=== PATIENT | male | born 1975 | race Caucasian/White ===

== ENCOUNTER 2023-05-14 19:05 | Inpatient (IN) | payer OTHER ==
[2023-05-14 20:16] LABS: ALBUMIN/GLOBULIN RATIO 1.9 (1.0-2.2); BILIRUBIN,TOTAL 1.4 mg/dL (0.2-1.0); CALCIUM 10.5 mg/dL (8.5-10.3); POTASSIUM 4.3 mmol/L (3.5-4.5); TOTAL PROTEIN 7.7 g/dL (6.4-8.9)
[2023-05-14 20:19] LABS: BASOPHILS # (AUTO) 0.1 10^3/uL (0.0-0.1); BASOPHILS % (AUTO) 0.4 %; EOSINOPHILS % (AUTO) 0.1 %; HCT - HEMATOCRIT 51.1 % (42.0-52.0); HGB - HEMOGLOBIN 18.8 g/dL (14.0-18.0); LYMPHOCYTES # (AUTO) 1.4 10^3/uL (1.5-3.5); LYMPHOCYTES % (AUTO) 11.9 %; MEAN CORPUSCULAR HGB CONC 36.8 g/dL (32.0-36.0); MEAN CORPUSCULAR VOLUME 89.8 fL (80.0-94.0); MEAN PLATELET VOLUME 9.8 fL (7.4-11.4); MONOCYTES # (AUTO) 0.6 10^3/uL (0.0-1.0); MONOCYTES % (AUTO) 5.3 %; NEUTROPHILS # (AUTO) 9.5 10^3/uL (1.5-6.6); NEUTROPHILS % (AUTO) 81.9 %; PLT - PLATELET COUNT 189 10^3/uL (130-450); RED BLOOD COUNT 5.69 10^6/uL (4.70-6.10); RED CELL DISTRIBUTION WIDTH 12.2 % (12.0-15.0); WHITE BLOOD COUNT 11.6 x10^3/uL (4.8-10.8)
[2023-05-14] MEDS ORDERED: SODIUM CHLORIDE 0.9% 1,000 ML IV STA (20:26)
[2023-05-14] MEDS ORDERED: ONDANSETRON 4 MG/2 ML VIAL IVP STA (20:27)
[2023-05-14] MEDS ORDERED: KETOROLAC 30 MG/ML VIAL IVP STA (20:27)
--- NOTE | 2023-05-14 20:29 | ED Physician Documentation ---
History of Present Illness - Stated complaint Stated Complaint: ABD PX/GI/VOMITING - Chief complaint Chief Complaint: Abd Pain - History obtained from History obtained from: Patient - Additonal information Additional information: 48yM with pmh reflux, psh BL hernia repair and appendectomy as an , p/w LUQ pain since yesterday radiating diffusely with associated dry heaves and nausea. also has not had BM since wednesday and only passed small amount of brown stool at that time. states he is unable to pass flatus and feels bloated. denies fever, urinary sx, diarrhea PD PAST MEDICAL HISTORY - Allergies Allergies/Adverse Reactions: Allergies Allergy/AdvReac Type Severity Reaction Status Date / Time No Known Drug Allergies Allergy Verified 05/14/23 19:30 PD ED PE NORMAL - Vitals Vital signs reviewed: Yes - General General: Alert and oriented X 3, No acute distress, Well developed/nourished - HEENT HEENT: Atraumatic, PERRL, EOMI - Neck Neck: Supple, no meningeal sign - Cardiac Cardiac: RRR - Respiratory Respiratory: No respiratory distress, Clear bilaterally - Abdomen Abdomen: Other (diffusely ttp) - Back Back: No CVA TTP - Derm Derm: Normal color, Warm and dry Results - Vitals Vitals: Vital Signs - 24 hr 05/14/23 19:27 Temperature 36.8 C Heart Rate 85 Respiratory 18 Rate Blood Pressure 174/112 H O2 Saturation 95 Oxygen O2 Source Room air - Labs Labs: Laboratory Tests 05/14/23 05/14/23 05/14/23 19:50 19:50 19:50 WBC 11.6 H RBC 5.69 Hgb 18.8 H Hct 51.1 MCV 89.8 MCH 33.0 H MCHC 36.8 H RDW 12.2 Plt Count 189 MPV 9.8 Neut # (Auto) 9.5 H Lymph # (Auto) 1.4 L Kern # (Auto) 0.6 Eos # (Auto) 0.0 Baso # (Auto) 0.1 Absolute Nucleated RBC 0.00 Nucleated RBC % 0.0 Sodium 134 L Potassium 4.3 Chloride 97 L Carbon Dioxide 28 Anion Gap 9.0 BUN 16 Creatinine 1.0 Estimated GFR (MDRD) 79 L Glucose 243 H Calcium 10.5 H Total Bilirubin 1.4 H AST 31 ALT 68 H Alkaline Phosphatase 69 Total Protein 7.7 Albumin 5.0 Globulin 2.7 Albumin/Globulin Ratio 1.9 Lipase 39 Urine Color Urine Clarity Urine pH Ur Specific [place] Urine Protein Urine Glucose (UA) Urine Ketones Urine Occult Blood Urine Nitrite Urine Bilirubin Urine Urobilinogen Ur Leukocyte Esterase Urine RBC Urine WBC Ur Squamous Epith Cells Urine Bacteria Urine Mucus Urine Culture Comments Serum Ketones NEGATIVE 05/14/23 19:50 WBC RBC Hgb Hct MCV MCH MCHC RDW Plt Count MPV Neut # (Auto) Lymph # (Auto) Kern # (Auto) Eos # (Auto) Baso # (Auto) Absolute Nucleated RBC Nucleated RBC % Sodium Potassium Chloride Carbon Dioxide Anion Gap BUN Creatinine Estimated GFR (MDRD) Glucose Calcium Total Bilirubin AST ALT Alkaline Phosphatase Total Protein Albumin Globulin Albumin/Globulin Ratio Lipase Urine Color DARK YELLOW Urine Clarity CLEAR Urine pH 6.0 Ur Specific [place] 1.025 Urine Protein 30 H Urine Glucose (UA) NEGATIVE Urine Ketones 40 H Urine Occult Blood NEGATIVE Urine Nitrite NEGATIVE Urine Bilirubin NEGATIVE Urine Urobilinogen 1 (NORMAL) Ur Leukocyte Esterase NEGATIVE Urine RBC None Seen Urine WBC 0-3 Ur Squamous Epith Cells NONE SEEN Urine Bacteria None Seen Urine Mucus Few Strands Urine Culture Comments NOT INDICATED Serum Ketones PD Medical Decision Making - ED course ED course: 48yM presents from clinic with concern for possible SBO given his two days of abdominal pain and inability to pass flatus. cbc, abdominal panel, u/a, serum ketones ordered in addition to CTAP. IVF , zofran, toradol provided with improvement in pain. SBO on CT. d/w Dr. Blas. plan to admit to medicine. NG and maintenance fluids ordered. Departure - Departure Disposition: 66 [facility] DC/Xfer Clinical Impression: SBO (small bowel obstruction) Condition: Stable Forms: PCP List
[2023-05-14] MEDS ORDERED: FAMOTIDINE 20 MG/2 ML VIAL IVP STA (20:30)
[2023-05-14 20:33] LABS: BILIRUBIN,URINE NEGATIVE (NEGATIVE); GLUCOSE, URINE (UA) NEGATIVE (NEGATIVE); KETONES,URINE (UA) 40 mg/dL (NEGATIVE); LEUKOCYTE ESTERASE, URINE NEGATIVE (NEGATIVE); NITRITE,URINE NEGATIVE (NEGATIVE); OCCULT BLOOD,URINE NEGATIVE (NEGATIVE); PROTEIN,URINE 30 mg/dL (NEGATIVE); UROBILINOGEN,URINE 1 (NORMAL) E.U./dL (NORMAL)
[2023-05-14 20:39] LABS: CLARITY,URINE CLEAR (CLEAR)
[2023-05-14 20:48] LABS: BACTERIA,URINE None Seen /HPF (None Seen); MUCUS,URINE Few Strands; RBC,URINE None Seen /HPF (0-5); SQUAMOUS EPITHELIAL CELL,UR NONE SEEN (<= Few); WBC,URINE 0-3 /HPF (0-3)
[2023-05-14] MEDS ORDERED: iohexoL-300 100 ML VIAL IVP ONE (21:29)
--- NOTE | 2023-05-14 22:20 | CT Report ---
PROCEDURE: ABDOMEN/PELVIS W INDICATIONS: LUQ pain, constipation, unable to pass flatus CONTRAST: 100 ML OMNI 300 TECHNIQUE: After the administration of intravenous contrast, 5 mm thick sections acquired from the diaphragms to the symphysis. 5 mm thick coronal and sagittal reformats were acquired. For radiation dose reducti on, the following was used: automated exposure control, adjustment of mA and/or kV according to christian ent size. COMPARISON: None FINDINGS: Image quality: Excellent. Lung bases and heart: Unremarkable. Liver: Moderate to marked diffuse hepatic hypodensity and relative hyperdensity in the gallbladder fo ssa. Gallbladder and biliary tree: Normal gallbladder. Nondilated biliary tree. Spleen: No splenomegaly. Pancreas: No pancreatic ductal dilation. Adrenals: No adrenal nodule. Kidneys and ureters: No hydronephrosis. No renal cystic lesion which requires follow up. No solid mas s. Bowel and peritoneum: The stomach contains fluid and an air-fluid level. Mid small bowel loops are di lated, fluid-filled, and demonstrate occasional fluid levels. There is mild interloop fat stranding. No signs of stasis in the right lower quadrant distended small bowel loop. There is a transition poin t of a moderate length segment of decompressed bowel with mucosal hyperemia seen. This segment of bow el has tram track appearance. There is mild surrounding fluid. Distal small bowel is decompressed. Te rminal ileum appears normal. The appendix was not identified. Colon is diffusely decompressed. No dep endently layering free fluid. No free air in the abdomen. Lymph nodes: No central or retroperitoneal adenopathy. Vessels: No infrarenal aortic aneurysm. PELVIS Reproductive organs: Unremarkable. Bladder: No abnormal wall thickening, accounting for underdistension. Pelvic lymph nodes: No pelvic adenopathy by size criteria. Bones: No aggressive osseous abnormality. Other: No significant ventral or inguinal hernia. IMPRESSION: 1. Acute small bowel obstruction with a transition point in the anterior right lower quadrant corresp onding to an inflamed, stenosed loop of small bowel. Consider inflammatory bowel disease as an etiolo gy of obstruction. Adhesions may also be present given probable prior appendectomy. 2. Moderate to marked hepatic steatosis. 3. Findings discussed with the ordering provider at 2217 hours. Reviewed by: Estefany Adrian MD on 05/14/2023 10:19 PM PDT Approved by: Estefany Adrian MD on 05/14/2023 10:19 PM PDT Station ID: [id number]
[2023-05-14] MEDS ORDERED: SODIUM CHLORIDE 0.9% 1,000 ML IV SCH (23:00)
[2023-05-14] MEDS ORDERED: ACETAMINOPHEN 325 MG TABLET PO PRN (23:53)
[2023-05-14] MEDS ORDERED: SODIUM CHLORIDE FLUSH 0.9% 10 ML SYRINGE IVP PRN (23:53)
[2023-05-15] MEDS ORDERED: METOCLOPRAMIDE 10 MG/2 ML VIAL IVP PRN
--- NOTE | 2023-05-15 00:05 | HISTORY & PHYSICAL EXAMINATION ---
Chief Complaint - Chief Complaint Chief Complaint: Abdominal pain constipation, nausea History of Present Illness - Admitted From Admitted From:: Home - History Obtained From Records Reviewed: Yes History obtained from: Patient and his Exam Limitations: Telemedicine - History of Present Illness HPI Comment/Other: 48yM with pmh reflux, psh BL hernia repair and appendectomy as an , p/w LUQ pain since yesterday radiating diffusely with associated dry heaves and nausea. also has not had BM since wednesday and only passed small amount of brown stool at that time. states he is unable to pass flatus and feels bloated. 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 He used to live in [facility] in past, originially from [place], [place] Patient had NGT placed in ER, surgery consulted after CT scan, had 300 ml output feels much better after NGT and dose of Toradol in ER, no hx of weight loss or weight gain, no change in diet or appetite. Meds/Allgy - Home Medications Home Medications: Ambulatory Orders Medication Instructions Recorded Confirmed No Known Home Medications 05/15/23 05/15/23 - Allergies Allergies/Adverse Reactions: Allergies Allergy/AdvReac Type Severity Reaction Status Date / Time No Known Drug Allergies Allergy Verified 05/14/23 19:30 Review of Systems - Gastrointestinal Gastrointestinal: reports: Abdominal pain, Abdominal distention, Constipation, Change in bowel habits Prior Level of Functionality: Independent with ADL Exam - Vital Signs Vital Signs: Vital Signs x48h Temp Pulse Resp BP Pulse Ox 05/14/23 23:15 100 16 140/100 H 96 05/14/23 19:27 36.8 C 85 18 174/112 H 95 - Physical Exam General Appearance: positive: No acute distress, Alert Eyes Bilateral: positive: Normal inspection, PERRL ENT: positive: ENT inspection nml Neck: positive: Nml inspection Respiratory: positive: Chest non-tender, No respiratory distress Cardiovascular: positive: Regular rate & rhythm Abdomen: positive: Other (Distended and feels bloated) Skin: positive: Color nml, No rash Extremities: positive: Full ROM, Nml appearance Neurologic/Psychiatric: positive: Oriented x3, CN's nml (2-12) Sepsis Event Note (H) - Evaluation Current Stage of Sepsis: Ruled out Conclusion/Plan - Problem List (1) SBO (small bowel obstruction) Conclusion/Plan: SBO KEEP NPO IVF Amulation Chew Gum Surgery has been consulted KEep electrolytes optimized check TSh Sean stockings NG to intermittent suction which can be clamped in am and patient to be encoruaged to ambulate Q1-2 hrs while awake If clinically appropriate would recommend UGI series once abdomen is soft Check Abxray 2 views in am based on his clinical progress all of the aboved discussed at length with elisa and his at bedside Will need GI consult and referral Patient has been informed that this ia telemedicine visit and I am based out of [place] and he agrees to the visit We had a nice talk over the teleconference. - Lab Results Fish Bones: 05/14/23 19:50 05/14/23 19:50 - Diagnostic Imaging Results Diagnostic Imaging Results: positive: Final report reviewed - EKG Results EKG Interpreted Independently: No
--- NOTE | 2023-05-15 00:58 | XRAY Report ---
PROCEDURE: Chest for Line Placement INDICATIONS: NG tube verification TECHNIQUE: One view of the chest was acquired. COMPARISON: None. FINDINGS: Surgical changes and devices: Nasogastric tube is present. The distal end and sidehole are below the diaphragm. Lungs and pleura: There is mild left hemidiaphragm elevation and slight left base opacity. No new co nsolidation, effusion, or pneumothorax. Mediastinum: Heart size at the upper limits of normal. Normal mediastinal contour without central ve nous congestion. Bones and chest wall: No suspicious bony lesions. Overlying soft tissues appear unremarkable. IMPRESSION: 1. Adequate placement of nasogastric tube. 2. Slight left hemidiaphragm elevation and associated atelectasis. Reviewed by: Estefany Adrian MD on 05/15/2023 12:57 AM PDT Approved by: Estefany Adrian MD on 05/15/2023 12:57 AM PDT Station ID: [id number]
[2023-05-15] MEDS: LACTATED RINGERS 1,000 ML IV SCH ×2 (01:06→13:24)
[2023-05-15] MEDS: SODIUM CHLORIDE FLUSH 0.9% 10 ML SYRINGE IVP SCH ×4 (01:08→23:34)
[2023-05-15] MEDS ORDERED: ACETAMINOPHEN 1,000 MG/100 ML 1,000 MG/100 ML BAG IV PRN (02:58)
[2023-05-15] MEDS ORDERED: HYDROmorphone 1 MG/ML CARPUJECT IVP PRN (02:59)
[2023-05-15] MEDS ORDERED: HYDROmorphone 0.5 MG/0.5 ML SYRINGE IVP PRN (02:59)
[2023-05-15 05:41] LABS: BASOPHILS % (AUTO) 0.3 %; EOSINOPHILS # (AUTO) 0.1 10^3/uL (0.0-0.7); EOSINOPHILS % (AUTO) 0.6 %; HCT - HEMATOCRIT 46.1 % (42.0-52.0); HGB - HEMOGLOBIN 16.4 g/dL (14.0-18.0); LYMPHOCYTES # (AUTO) 2.1 10^3/uL (1.5-3.5); MEAN CORPUSCULAR HEMOGLOBIN 32.7 pg (27.0-31.0); MEAN CORPUSCULAR HGB CONC 35.6 g/dL (32.0-36.0); MEAN CORPUSCULAR VOLUME 91.8 fL (80.0-94.0); MEAN PLATELET VOLUME 9.5 fL (7.4-11.4); MONOCYTES % (AUTO) 8.4 %; NEUTROPHILS # (AUTO) 8.6 10^3/uL (1.5-6.6); NEUTROPHILS % (AUTO) 72.4 %; PLT - PLATELET COUNT 162 10^3/uL (130-450); RED BLOOD COUNT 5.02 10^6/uL (4.70-6.10); RED CELL DISTRIBUTION WIDTH 12.2 % (12.0-15.0); WHITE BLOOD COUNT 11.9 x10^3/uL (4.8-10.8)
[2023-05-15 06:45] LABS: ALBUMIN 4.2 g/dL (3.2-5.5); ALKALINE PHOSPHATASE 57 IU/L (42-121); ALT ALANINE AMINOTRANSFERASE 51 IU/L (10-60); AST ASPARTATE AMINOTRANSFERASE 21 IU/L (10-42); BILIRUBIN,TOTAL 1.1 mg/dL (0.2-1.0); BUN - BLOOD UREA NITROGEN 20 mg/dL (6-20); CALCIUM 9.5 mg/dL (8.5-10.3); CARBON DIOXIDE - CO2 30 mmol/L (21-32); CHLORIDE 100 mmol/L (101-111); CHOL/HDL RATIO 5.3 (<5.0); CHOLESTEROL 185 mg/dL; GFR - MDRD 79 (>89); GLUCOSE 206 mg/dL (74-104); HDL CHOLESTEROL 35 mg/dL; LDL CHOLESTEROL,CALCULATED 110 mg/dL; LDL/HDL RATIO 3.1 (<3.6); SODIUM 138 mmol/L (135-145); TOTAL PROTEIN 6.3 g/dL (6.4-8.9); TRIGLYCERIDES 199 mg/dL (48-352); VLDL CHOLESTEROL 40 mg/dL
--- NOTE | 2023-05-15 08:48 | PROVIDER PROGRESS NOTE ---
Assessment/Plan - Problem List (1) SBO (small bowel obstruction) Assessment/Plan: resolved Patient was on NG suction, had small bowel follow-through. Was able to have bowel movement after the dye consumed Per surgical Dr. Funk, advance diet, observe overnight watch if his abdominal pain re-occures - Current Meds Current Meds: Current Medications Generic Name Dose Route Start Last Admin Trade Name Freq PRN Reason Stop Dose Admin Hydromorphone HCl 1 mg 05/15/23 02:59 05/15/23 03:18 Hydromorphone 1 Mg/Ml Carpuject IVP 1 mg Q4H PRN Administration Severe Pain (Level 7-10) Lactated Ringer's 1,000 mls @ 75 mls/hr 05/14/23 23:45 05/15/23 01:06 Lr IV 75 mls/hr .[id number] CORAZON Administration Sodium Chloride 10 ml 05/15/23 01:00 05/15/23 01:08 Sodium Chloride Flush 0.9% 10 Ml Syringe IVP Not Given 0100,0900,1700 CORAZON - Lab Result Fish Bone Diagrams: 05/15/23 05:14 05/15/23 05:14 - Diagnostic Imaging Results Diagnostic Imaging Results: See rad report, Read independently - Additional Planning Condition/Complexity: Improved Subjective - Subjective Patient Reports: Feeling Better, Other (A 48 years old male with history of GERD bilateral hernia repair and appendectomy as an infant Admitted 05/15/2023 midnight for left lower quadrant pain for 1 day with dry heaves and nausea has not had bowel movement for 3 days, only passed a small amount of brown stool at that time.) Objective Vital Signs: Vital Signs - 24 hr 05/14/23 05/14/23 05/15/23 19:27 23:15 00:00 Temperature 36.8 C 36.7 C Heart Rate 85 100 Heart Rate [ 102 H Brachial] Respiratory 18 16 18 Rate Blood Pressure 174/112 H 140/100 H Blood Pressure 159/94 H [Left Brachial artery] O2 Saturation 95 96 96 05/15/23 05/15/23 00:32 08:15 Temperature 36.8 C Heart Rate 89 Heart Rate [ 85 Brachial] Respiratory 20 18 Rate Blood Pressure 140/109 H Blood Pressure 144/83 H [Left Brachial artery] O2 Saturation 95 95 Oxygen O2 Source Room air I&O (Last 24 Hrs): Intake and Output Totals x24h 05/13/23 05/14/23 05/15/23 23:59 23:59 23:59 Intake Total 1000 164.583 Output Total 130 Balance 1000 34.583 General: Alert, Oriented x3 HEENT: PERRLA, EOMI Neck: Supple, No JVD Neuro: Alert, Non Focal Cardiovascular: Regular rate Respiratory: Chest non-tender, No respiratory distress Abdomen: No tenderness Extremities: No clubbing, No edema - Results Results: Laboratory Results WBC 11.9 x10^3/uL (4.8-10.8) H 05/15/23 05:14 RBC 5.02 10^6/uL (4.70-6.10) 05/15/23 05:14 Hgb 16.4 g/dL (14.0-18.0) 05/15/23 05:14 Hct 46.1 % (42.0-52.0) 05/15/23 05:14 MCV 91.8 fL (80.0-94.0) 05/15/23 05:14 MCH 32.7 pg (27.0-31.0) H 05/15/23 05:14 MCHC 35.6 g/dL (32.0-36.0) 05/15/23 05:14 RDW 12.2 % (12.0-15.0) 05/15/23 05:14 Plt Count 162 10^3/uL (130-450) 05/15/23 05:14 MPV 9.5 fL (7.4-11.4) 05/15/23 05:14 Neut # (Auto) 8.6 10^3/uL (1.5-6.6) H 05/15/23 05:14 Lymph # (Auto) 2.1 10^3/uL (1.5-3.5) 05/15/23 05:14 [place] # (Auto) 1.0 10^3/uL (0.0-1.0) 05/15/23 05:14 Eos # (Auto) 0.1 10^3/uL (0.0-0.7) 05/15/23 05:14 Baso # (Auto) 0.0 10^3/uL (0.0-0.1) 05/15/23 05:14 Absolute Nucleated RBC 0.00 x10^3/uL 05/15/23 05:14 Nucleated RBC % 0.0 /100WBC 05/15/23 05:14 Sodium 138 mmol/L (135-145) 05/15/23 05:14 Potassium 4.0 mmol/L (3.5-4.5) 05/15/23 05:14 Chloride 100 mmol/L (101-111) L 05/15/23 05:14 Carbon Dioxide 30 mmol/L (21-32) 05/15/23 05:14 Anion Gap 8.0 (6-13) 05/15/23 05:14 BUN 20 mg/dL (6-20) 05/15/23 05:14 Creatinine 1.0 mg/dL (0.6-1.3) 05/15/23 05:14 Estimated GFR (MDRD) 79 (>89) L 05/15/23 05:14 Glucose 206 mg/dL (74-104) H 05/15/23 05:14 Lactic Acid 1.4 mmol/L (0.5-2.2) 05/14/23 23:10 Calcium 9.5 mg/dL (8.5-10.3) 05/15/23 05:14 Total Bilirubin 1.1 mg/dL (0.2-1.0) H 05/15/23 05:14 AST 21 IU/L (10-42) 05/15/23 05:14 ALT 51 IU/L (10-60) 05/15/23 05:14 Alkaline Phosphatase 57 IU/L (42-121) 05/15/23 05:14 Total Protein 6.3 g/dL (6.4-8.9) L 05/15/23 05:14 Albumin 4.2 g/dL (3.2-5.5) 05/15/23 05:14 Globulin 2.1 g/dL (2.1-4.2) 05/15/23 05:14 Albumin/Globulin Ratio 2.0 (1.0-2.2) 05/15/23 05:14 Triglycerides 199 mg/dL (48-352) 05/15/23 05:14 Cholesterol 185 mg/dL (-200) 05/15/23 05:14 LDL Cholesterol, Calc 110 mg/dL (-129) 05/15/23 05:14 VLDL Cholesterol 40 mg/dL 05/15/23 05:14 HDL Cholesterol 35 mg/dL (60-) L 05/15/23 05:14 LDL/HDL Ratio 3.1 (<3.6) 05/15/23 05:14 Cholesterol/HDL Ratio 5.3 (<5.0) 05/15/23 05:14 Lipase 39 U/L (11-82) 05/14/23 19:50 Carcinoembryonic Ag 1.4 ng/mL 05/14/23 19:50 TSH 2.90 uIU/mL (0.34-5.60) 05/15/23 05:14 Urine Color DARK YELLOW 05/14/23 19:50 Urine Clarity CLEAR (CLEAR) 05/14/23 19:50 Urine pH 6.0 PH (5.0-7.5) 05/14/23 19:50 Ur Specific [place] 1.025 (1.002-1.030) 05/14/23 19:50 Urine Protein 30 mg/dL (NEGATIVE) H 05/14/23 19:50 Urine Glucose (UA) NEGATIVE mg/dL (NEGATIVE) 05/14/23 19:50 Urine Ketones 40 mg/dL (NEGATIVE) H 05/14/23 19:50 Urine Occult Blood NEGATIVE (NEGATIVE) 05/14/23 19:50 Urine Nitrite NEGATIVE (NEGATIVE) 05/14/23 19:50 Urine Bilirubin NEGATIVE (NEGATIVE) 05/14/23 19:50 Urine Urobilinogen 1 (NORMAL) E.U./dL (NORMAL) 05/14/23 19:50 Ur Leukocyte Esterase NEGATIVE (NEGATIVE) 05/14/23 19:50 Urine RBC None Seen /HPF (0-5) 05/14/23 19:50 Urine WBC 0-3 /HPF (0-3) 05/14/23 19:50 Ur Squamous Epith Cells NONE SEEN (<= Few) 05/14/23 19:50 Urine Bacteria None Seen /HPF (None Seen) 05/14/23 19:50 Urine Mucus Few Strands 05/14/23 19:50 Urine Culture Comments NOT INDICATED 05/14/23 19:50 Serum Ketones NEGATIVE (NEGATIVE) 05/14/23 19:50 Sepsis Event Note (H) - Evaluation Current Stage of Sepsis: Ruled out ABX Reporting Has patient been on IV antibiotics over the past 48 hours?: No Current Medications - Current Medications Current Medications: Active Medications Acetaminophen (Acetaminophen 325 Mg Tablet) 650 mg PO Q4HR PRN PRN Reason: Pain 1 to 4, or Fever Heparin Sodium (Porcine) (Heparin 5,000 Unit/Ml Vial) 5,000 unit SUBQ BID [facility] Hydromorphone HCl (Hydromorphone 1 Mg/Ml Carpuject) 1 mg IVP Q4H PRN PRN Reason: Severe Pain (Level 7-10) Last Admin: 05/15/23 03:18 Dose: 1 mg Hydromorphone HCl (Hydromorphone 0.5 Mg/0.5 Ml Syringe) 0.5 mg IVP Q4H PRN PRN Reason: Moderate Pain (Level 4-6) Last Admin: 05/15/23 08:59 Dose: 0.5 mg Ketorolac Tromethamine (Ketorolac 30 Mg/Ml Vial) 30 mg IVP Q6H [facility] Stop: 05/16/23 10:01 Last Admin: 05/15/23 15:56 Dose: 30 mg Metoclopramide HCl (Metoclopramide 10 Mg/2 Ml Vial) 10 mg IVP Q6HR PRN PRN Reason: Nausea / Vomiting Last Admin: 05/15/23 10:41 Dose: 10 mg Sodium Chloride (Sodium Chloride Flush 0.9% 10 Ml Syringe) 10 ml IVP PRN PRN PRN Reason: NEEDED PER PROVIDER ORDERS Sodium Chloride (Sodium Chloride Flush 0.9% 10 Ml Syringe) 10 ml IVP 0100,0900,1700 [facility] Last Admin: 05/15/23 08:59 Dose: 10 ml Throat Lozenges (Benzocaine/Menthol Lozenge) 1 lozenge MM Q2HR PRN PRN Reason: Throat pain Last Admin: 05/15/23 12:49 Dose: 1 lozenge No Known Home Medications 05/15/23
--- NOTE | 2023-05-15 09:26 | CONSULTATION NOTE ---
Surgery Consult - Admit Date Hospital Admission Date: 05/14/23 - Consult Date Consult Date: 05/15/23 Requesting Provider: Dr. Tarango - Chief Complaint Chief Complaint: Abdominal pain - Home Meds/Allergies Home Medications: Patient History Medication Instructions Recorded Confirmed No Known Home Medications 05/15/23 05/15/23 Allergies/Adverse Reactions: Allergies Allergy/AdvReac Type Severity Reaction Status Date / Time No Known Drug Allergies Allergy Verified 05/14/23 19:30 - Vital Signs Vital Signs: Last Vital Signs Temp 98.2 F 05/15/23 08:15 Pulse 85 05/15/23 08:15 Resp 18 05/15/23 08:15 BP 144/83 H 05/15/23 08:15 Pulse Ox 95 05/15/23 08:15 O2 Flow Rate Intake & Output: Intake & Output 05/12/23 05/13/23 05/14/23 05/15/23 23:59 23:59 23:59 23:59 Intake Total 1000 164.583 Output Total 130 Balance 1000 34.583 - Lab Results Result Diagrams: 05/15/23 05:14 05/15/23 05:14 - Consultation Note Consultation Note: S: Trent is a 48 year old male who developed the sudden onset of lower abdominal discomfort afternoon around at 1500. This was described as constant, non-radiating, and associated with nausea. He vomited once when he tried to lay on his stomach. He has not passed flatus or had a bowel motion in several days and this is unusual for him. He normally has no lower GI issues. An NGT was placed and with the removal of gas and fluid from the stomach he felt much better. At the present time, he has minimal lower abdominal discomfort and is tolerating the NGT. He denies recent travel or eating tainted food. Trent has a PSH of bilateral inguinal hernia repair and appendectomy as an infant. He has had no lower GI or groin symptoms since then. Trent denies allergies to medications and only take a PPI for GERD. He has no FH of UC or Crohn's but his has Crohn's disease. 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 O: VSS, afeb AAO; In NAD; Converses easily with examiner HEENT: NGT in place - 300 ml succus in container Lungs: Clear to auscultation Heart: NSR Abdomen: Slightly distended with tympany in upper quadrants; No tenderness; Hypoactive BS; No inguinal or ventral hernias Ext: WNL Images: CT ABD/Pelvis - distended proximal small bowel with fecalization of the small bowel seen in the RLQ (sag 55-60) and decompressed small bowel distally (? Crohn's per radiology) Assessment: SBO vs ileus. There is no clinical, lab, or image evidence of small bowel ischemia at this time. Although the distal small bowel is decompressed, given his absence of prior lower GI issues, I think Crohn's is less likely than either adhesions from his prior surgery or an ileus. Plan: NGT to LIS - ongoing Ketorolac 30 mg IV Q 6 hrs for 5 doses SB challenge study today Serial labs Ambulate VTEP If no resolution over the next 24-36 hours or if he develops signs or symptoms of bowel ischemia, operative intervention will be offered. Surgery will follow River Funk MD [facility] Service
[2023-05-15] MEDS ORDERED: DIATR MEGLU/DIATRIZOATE SODIUM 120 ML BOTTLE ONE (10:12)
[2023-05-15] MEDS: KETOROLAC 30 MG/ML VIAL IVP SCH ×3 (10:36→21:24)
--- NOTE | 2023-05-15 11:11 | XRAY Report ---
PROCEDURE: SBFT Challenge Panel INDICATIONS: SBO vs Ileus COMPARISON: Abdominal radiograph May 14, 2023 CONTRAST: Oral contrast FLUOROSCOPY TIME: 10:20, 10:35, 10:50 AM FINDINGS: KUB: Preprocedural compressed gases tester film demonstrates a normal bowel gas pattern. No suspicious abdominal calc ifications. Visualized solid organ contours appear normal. No suspicious bony abnormalities. Oral contrast is seen within the stomach with enteric tube. Subsequent images show contrast passing t hrough the small bowel with numerous prominent loops and eventual contrast presenting within the desc ending and transverse colon. The bladder is opacified. IMPRESSION: Progression of oral contrast through the transverse colon. Reviewed by: Jean Marie Sapp MD on 05/15/2023 10:10 AM HEDY Approved by: Jean Marie Sapp MD on 05/15/2023 10:10 AM [id number] Station ID: [id number]
--- NOTE | 2023-05-15 11:13 | PHARMACY PROGRESS NOTE ---
- Best Possible Medication History Admit Date and Time: 05/14/23 9008 Processed by: Nursing As the person ultimately responsible for medication therapy, providers are able to order a medication from an existing home medication list in [facility] via the "Reconcile Routine" prior to Confirmation of that medication by academic support specialist. Such practice is discouraged except when the physician, in their clinical judgment, deems that a medical need exists for a medication without regard to previous use.
[2023-05-15] MEDS ORDERED: DIATR MEGLU/DIATRIZOATE SODIUM 120 ML BOTTLE PO ONE (11:37)
[2023-05-15] MEDS ORDERED: BENZOCAINE/MENTHOL LOZENGE MM PRN (11:39)
--- NOTE | 2023-05-15 15:01 | PROVIDER PROGRESS NOTE ---
Progress Note General Surgery Progress Note S: Passing liquid stool from rectum after contrast study. Abdominal pain resolved. O: VSS; Abdomen is soft and non-tender. SBFT - contrast in colon after 3 hours. Some dilated loops of small bowel remain but are less dilated than before the contrast study A: Ileus vs partial SBO - resolving. Uncertain at this point in time if the terminal ileum is involved with Crohn's. If this episode resolves but he has similar episodes in the future, a full SBFT and/or colonoscopy with biopsy of the TI to evaluate the terminal ileum could be offered. P: Remove NGT; Clear liquid diet and advance as tolerated. I explained to the patient and his that if he has a partial mechanical SBO that his symptoms may recur and if they do he will require operative intervention to resolve the obstruction. I informed Dr. Tarango of my assessment and recommendations. River Funk MD General Surgery Service
[2023-05-15] MEDS: HEPARIN 5,000 UNIT/ML VIAL SUBQ SCH (21:26)
[2023-05-16] MEDS: KETOROLAC 30 MG/ML VIAL IVP SCH ×2 (04:04→09:24)
[2023-05-16 05:30] LABS: BASOPHILS % (AUTO) 0.4 %; EOSINOPHILS % (AUTO) 3.1 %; HCT - HEMATOCRIT 40.9 % (42.0-52.0); HGB - HEMOGLOBIN 15.3 g/dL (14.0-18.0); LYMPHOCYTES % (AUTO) 25.1 %; MEAN CORPUSCULAR HEMOGLOBIN 34.1 pg (27.0-31.0); MEAN CORPUSCULAR HGB CONC 37.4 g/dL (32.0-36.0); MEAN CORPUSCULAR VOLUME 91.1 fL (80.0-94.0); MEAN PLATELET VOLUME 9.5 fL (7.4-11.4); NEUTROPHILS % (AUTO) 61.1 %; PLT - PLATELET COUNT 128 10^3/uL (130-450); RED BLOOD COUNT 4.49 10^6/uL (4.70-6.10); RED CELL DISTRIBUTION WIDTH 12.2 % (12.0-15.0); WHITE BLOOD COUNT 7.5 x10^3/uL (4.8-10.8)
[2023-05-16 05:50] LABS: CALCIUM 8.6 mg/dL (8.5-10.3); CREATININE 1.1 mg/dL (0.6-1.3); POTASSIUM 3.8 mmol/L (3.5-4.5)
[2023-05-16 07:14] LABS: ABNORMAL LYMPHS % (MANUAL) 0 %; BAND NEUTROPHILS % (MANUAL) 0 %
[2023-05-16 07:31] LABS: EOSINOPHILS # (MANUAL) 0.2 10^3/uL (0-0.7); LYMPHOCYTES # (MANUAL) 2.6 10^3/uL (1.5-3.5); LYMPHOCYTES % (MANUAL) 29 %; MONOCYTES # (MANUAL) 0.2 10^3/uL (0.0-1.0); NEUTROPHILS # (MANUAL) 4.6 10^3/uL (1.5-6.6); REACTIVE LYMPHS % (MANUAL) 5 %
[2023-05-16 07:32] LABS: PLATELET MORPHOLOGY NORMAL APPEARANCE (NORMAL)
[2023-05-16 07:33] LABS: DIFFERENTIAL COMMENT MANUAL DIFFERENTIAL; PLATELET ESTIMATE, MANUAL NORMAL (130-450,000) (NORMAL)
--- NOTE | 2023-05-16 08:52 | PROVIDER PROGRESS NOTE ---
Progress Note General Surgery Progress Note S: Trent is progressing well. He tolerated a full liquid diet last night and ate a general breakfast this morning. He tells me that he passed flatus and had a bowel motion earlier today. His abdominal symptoms are mostly gone although the upper abdominal discomfort has not completely resolved. There has been no nausea and he has not experienced emesis since the NGT was removed. O: VSS, afeb AAO Abdomen is soft with mild distension in the upper quadrants. There is no abdominal tenderness to palpation and specifically no RLQ tenderness or fullness. BS are present. AM labs: Na 138; K 3.8; BUN 23; Cr 1.1 Hgb 15; Hct 40.9; WBC 7.5 (normal diff) A: Resolving SBO vs Ileus. If he has a chronic narrowing of the small bowel in the RLQ, his symptoms may recur and at that time operative intervention may be deemed necessary for what would then be a diagnosis of a chronic, recurrent SBO. Recommendation: 1) Diet, activity as tolerated 2) Since he does not have a PCP, it would be prudent to have him seen in the Surgery [facility] for follow-up in about 1-2 weeks as he may require a work-up for possible regional ileitis (MRI, CS with TI biopsy, Fluroscopic SBFT) 3) If he has recurrence of his symptoms before he is seen in the office, he is instructed to return to the ED for evaluation and management. Saurabh Funk MD General Surgery Service
[2023-05-16] MEDS: HEPARIN 5,000 UNIT/ML VIAL SUBQ SCH (09:23)
[2023-05-16] MEDS: SODIUM CHLORIDE FLUSH 0.9% 10 ML SYRINGE IVP SCH (10:56)
--- NOTE | 2023-05-16 13:20 | Discharge Plan ---
Discharge Plan Problem Reviewed?: Yes Disposition: Home, Self Care Condition: Stable Diet: Regular Activity Restrictions: No Restrictions Shower Restrictions: No Driving Restrictions: No Weight Bearing: Full Weight Instruction Topics: Obstruction Sm Bowel, ED Diet Machias Ch Plan of Treatment: please watch for your diet, easy digest diet is recommended for the next two weeks Assessment: stable Additional Instructions or Follow Up instructions: please establish care with a primary care physician You are recommended to have annual check up, and preventive colonoscopy screen within a year No Smoking: If you smoke, Please STOP! Call for help.
--- NOTE | 2023-05-16 13:27 | DISCHARGE SUMMARY ---
"Discharge Summary Admit Date: 05/15/23 Discharge Date: 05/16/23 Discharging Provider: Chavez Tarango Code Status: Attempt Resuscitation Condition at Discharge: Stable Discharge Disposition: 01 Home, Self Care - DIAGNOSES Admission Diagnoses: SBO Discharge Diagnoses with Status of Each Condition: Small bowel obstruction, resolved - HPI History of Present Illness: A 48 years old male with history of GERD past surgical history of bilateral hernia repair and appendicectomy as an . Admitted on 05/15/2023 midnight for left upper quadrant pain for 1 day, radiating diffusely with associated dry heaves and nausea. He has not had a bowel movement since 3 days ago and only passed a small amount of brown stool at that time. He states he is unable to pass gas and feels bloated. Denies fever, urinary symptoms or diarrhea. 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 No similar symptoms before. No family history of IBD or GI issues. Patient was having normal limits vitals on presentation, labs are unremarkable. CT shows small bowel obstruction, NG tube was placed in the ED. 300 cc output after NG tube placement, I felt much better afterwards. Patient received 1 dose of Toradol in the ED as well. Surgery was consulted. - CONSULTS | PROCEDURES Consultations: Surgery Dr. Funk - HOSPITAL COURSE Hospital Course: After admission, patient continue on NG tube on intermittent suction. Patient abdominal pain resolved, per surgeon, small bowel follow-through was done, the contrast was seen in the colon properly. Patient had loose stool afterwards. NG tube was removed, trial on clear liquid diet, full liquid diet and then general diet. After eating general diet, patient complains mild upper abdominal discomfort otherwise he has been passing gas. Surgery is cleared patient for discharge. Patient is discharged on 05/16/2023 in stable condition. Recommend patient to follow-up with surgical team as outpatient, also recommend patient to establish care with a primary care physician for annual physicals and colonoscopy screening. - ALLERGIES Allergies/Adverse Reactions: Allergies Allergy/AdvReac Type Severity Reaction Status Date / Time No Known Drug Allergies Allergy Verified 05/14/23 19:30 - MEDICATIONS Home Medications: Ambulatory Orders Medication Instructions Recorded Confirmed No Known Home Medications 05/15/23 05/15/23 - PHYSICAL EXAM AT DISCHARGE General Appearance: positive: No acute distress, Alert Eyes Bilateral: positive: PERRL, EOMI ENT: positive: ENT inspection nml Neck: positive: Nml inspection Respiratory: positive: Chest non-tender, No respiratory distress Cardiovascular: positive: Regular rate & rhythm Abdomen: positive: Non-tender, Nml bowel sounds, No distention Skin: positive: Color nml, No rash, Warm, Dry Extremities: positive: Non-tender, Full ROM Neurologic/Psychiatric: positive: Oriented x3, CN's nml (2-12) - LABS Result Diagrams: 05/16/23 05:02 05/16/23 05:02 - SEPSIS Current Stage of Sepsis: Ruled out - TIME SPENT Time Spent in Discharge (Minutes): 30"
[2023-05-16 13:45] VITALS: BP 150/86; O2SAT 100
== END 2023-05-16 13:53 | disposition home or self-care (01) | DRG 390 ==
LOC: ED 19:05 → MS2 23:53
PROVIDERS: ADMIT Internal Medicine; ATTEND Internal Medicine
DX: K56.609 Unspecified intestinal obstruction, unspecified as to partial versus complete obstruction (principal); K21.9 Gastro-esophageal reflux disease without esophagitis
CPT/HCPCS: 36415; 74177; 74250; 80048; 80053; 80061; 81001; 82009; 82378; 83605; 83690; 84443; 85025; 96374; 96375; 99285; A9270; J1170; J2765; J7120; Q9963; Q9967; 83721; 87086